=== PATIENT | female | born 1985 | race Caucasian/White ===

== ENCOUNTER → 2017-02-05 | Outpatient (CLI) | payer MEDICAID, OTHER ==
--- NOTE | 2017-02-06 01:35 | REP ---
Clinical: Anatomical evaluation. Comparison: None . Findings: Examination demonstrates a single live intrauterine in cephalic presentation. motion is identified by technologist. Placenta is noted anteriorly and grade zero without evidence for placenta previa or abruption. Amniotic fluid volume is normal. Cervix measures 3.0 cm in length and appears closed. No evidence for nuchal cord. Gestational age by LMP 19 weeks 6 days with CLAUDIA 06/26/2017 . Gestational age by current measurements 19 weeks 0 days with CLAUDIA 07/02/2017 . FHR equals 163 beats per minute. BPD 4.3 cm 19 weeks 1 day HC 16.0 cm 18 weeks 6 days AC 13.6 cm 19 weeks 0 days FL 3.1 cm 19 weeks 5 days HL 2.7 cm 18 weeks 4 days HC/AC ratio 1.18 Estimated weight 283 grams ( 25th percentile). Anatomical assessment demonstrates normal structures including cranium, choroid plexus, cavum, cerebellum/posterior fossa, facial features, lungs, four-chamber heart/ventricular outflow tracts, diaphragm, stomach, cord insertion/three-vessel cord, kidneys/bladder, spine, and extremities. Impression: 1. Single live intrauterine in cephalic presentation demonstrating appropriate interval growth. 2. Anatomical assessment is complete and normal. Signed by Thaddeus Benavides MD 02/06/2017 01:26 A
== END ==
LOC: M RAD 17:48
PROVIDERS: ATTEND Advanced Practice Midwife
DX: Z36 Encounter for antenatal screening of mother (principal)

== ENCOUNTER → 2017-04-17 | Outpatient (CLI) | payer OTHER ==
[~2017-04-17] MED LIST: MOTR200T44 PO; PERC5TAB12 PO; PRENTAB9 PO
[2017-04-17 20:41] LABS: MEAN CORPUSCULAR HGB CONC 34.2 g/dl (32.0-36.5); MEAN CORPUSCULAR VOLUME 93.6 fl (80.0-96.0); RED CELL DISTRIBUTION WIDTH 13.2 % (11.5-14.5); WHITE BLOOD COUNT 9.9 K/mm3 (4.0-10.0)
== END ==
LOC: M WUC 17:05 → MERGE 17:05
PROVIDERS: ATTEND Obstetrics & Gynecology
DX: Z34.02 Encounter for supervision of normal first pregnancy, second trimester (principal)

== ENCOUNTER → 2017-05-28 | Outpatient (REF) | payer OTHER | LOC: M LAB REF 13:09 | PROVIDERS: ATTEND Advanced Practice Midwife | DX: Z34.03 Encounter for supervision of normal first pregnancy, third trimester (principal) ==

== ENCOUNTER 2017-06-30 11:42 | Inpatient (IN) | payer OTHER ==
[2017-06-30] VITALS (7 sets, daily range): BP systolic 93–122; BP diastolic 53–76
[~2017-06-30] VITALS: Ht 149.9 cm; Wt 71.6 kg
[2017-06-30] MEDS ORDERED: PRENTAB9 PO (12:05)
--- NOTE | 2017-06-30 14:33 | REP ---
Limited obstetric sonography: History: Decreased movement. 39 weeks 5 days by comparison with prior sonography. Findings: Scanning demonstrates a viable single intrauterine gestation in a cephalic lie. heart rate is recorder 137 beats per minute. An anterior grade 1 placenta is seen without evidence of previa or abruption. Amniotic fluid index is normal at 16.9 cm. Biophysical profile score is eight out of a possible eight. The SD ratio in the umbilical cord artery by Doppler is normal at 1.87. Signed by Jose Clemente MD 06/30/2017 02:16 P
[2017-06-30] MEDS ORDERED: LR 1,000 ML IV SCH (22:04)
[2017-06-30] MEDS ORDERED: LACTATED RINGER'S 1000 ML IV STA (22:04)
[2017-06-30] MEDS ORDERED: PROMETHAZINE INJ 25 MG/ML VIAL (J2550) IV ONE (22:15)
[2017-06-30] MEDS ORDERED: OXYTOCIN DRIP 30 UNITS in APPROPRIATE DILUENT 1 EA IV SCH (22:15)
[2017-06-30] MEDS ORDERED: BUTORPHANOL 2 MG/ML INJ (J0595) IV ONE (22:15)
[2017-06-30 22:17] LABS: MEAN CORPUSCULAR HEMOGLOBIN 31.6 pg (27.0-33.0); MEAN CORPUSCULAR HGB CONC 35.6 g/dl (32.0-36.5); MEAN CORPUSCULAR VOLUME 88.7 fl (80.0-96.0); PLATELET COUNT, AUTOMATED 205 10^3/uL (150-450); RED CELL DISTRIBUTION WIDTH 12.5 % (11.5-14.5); WHITE BLOOD COUNT 13.6 10^3/uL (4.0-10.0)
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
[2017-07-01] VITALS (41 sets, daily range): BP systolic 92–145; BP diastolic 55–90
[2017-07-01] MEDS ORDERED: FENTANYL 2MCG/ML ROPIVACAINE 0.2% IN 0.9% NACL 200ML IVBAG As Ordered ONE (00:01)
[2017-07-01] MEDS ORDERED: ePHEDrine SULFATE 25 MG/5 ML(5MG/ML) SYRINGE IV PRN (01:30)
[2017-07-01] MEDS ORDERED: LACTATED RINGER'S 1000 ML IV PRN (01:30)
[2017-07-01] MEDS ORDERED: REFRIGERATOR IV KEYS XX PRN (01:30)
[2017-07-01] MEDS ORDERED: diphenhydrAMINE INJ 50MG/ML VIAL (J1200) IV PRN (01:30)
[2017-07-01] MEDS ORDERED: EPIDURAL/PCA KEYS XX PRN (01:30)
[2017-07-01] MEDS ORDERED: FENTANYL/ROPIVACAINE/NACL BAG 200 ML EPIDURAL SCH (01:30)
[2017-07-01] MEDS ORDERED: NALOXONE INJ 0.4 MG/1 ML VIAL (J2310) IV PRN (01:30)
[2017-07-01] MEDS ORDERED: ONDANSETRON 4MG/2ML VIAL (J2405) IV PRN ×2 (01:30→12:15)
[2017-07-01] MEDS ORDERED: EPIDURAL COMMENT XX SCH (01:30)
--- NOTE | 2017-07-01 07:48 | IPNPDOC ---
Text Note Date of Service The patient was seen on 07/01/17. NOTE SUBJECTIVE: Patient comfortable with epidural. No complaints. Reports she was able to rest this morning. OBJECTIVE: VS stable. FHR 145, moderate variability with periods of minimal variability, no decelerations, positive accelerations. Contractions every 2 to 4 minutes. Pitocin at 8 mu. Green bulb removed at 0600. SVE: 1-2/100/-1, intact , scant show. ASSESSMENT: IUP at 40.5 weeks gestation, induction of labor, Category I FHR tracing PLAN: Continue with Pitocin induction. Anticipate cervical change and . VS,Fishbone, I+O VS, Fishbone, I+O Laboratory Tests 06/30/17 22:00 Red Blood Count 3.99 L, Mean Corpuscular Volume 88.7, Mean Corpuscular Hemoglobin 31.6, Mean Corpuscular Hemoglobin Concent 35.6, Red Cell Distribution Width 12.5 Vital Signs Date Time Temp Pulse Resp B/P (MAP) Pulse Ox O2 Delivery O2 Flow Rate FiO2 07/01/17 05:23 97.8 67 17 126/81 (96) KATIUSKA ARTIS CNM Jul 01, 2017 07:48
[2017-07-01] MEDS: DOCUSATE SODIUM 100 MG CAP PO SCH ×2 (09:00→21:33)
[2017-07-01] MEDS: PRENATAL VITAMINS CHEWABLE TABLET PO SCH (09:00)
[2017-07-01] MEDS ORDERED: BICITRA 30ML SOLN UDC As Ordered ONE (10:21)
[2017-07-01] MEDS ORDERED: ceFAZolin 2 GM/D5W 50 ML IV BAG (J0690) As Ordered ONE (10:21)
[2017-07-01] MEDS ORDERED: LACTATED RINGER'S 1000 ML IV STA (10:24)
[2017-07-01] MEDS ORDERED: LIDOCAINE PRES-FREE 2% 10ML AMP As Ordered ONE (10:39)
[2017-07-01] MEDS ORDERED: OXYTOCIN INJ 10 UNITS/ML VIAL (J2590) As Ordered ONE (10:39)
[2017-07-01] MEDS ORDERED: BICITRA 30ML SOLN UDC PO ONE (10:45)
[2017-07-01] MEDS ORDERED: fentaNYL 100 MCG/2 ML INJECTION (J3010) As Ordered ONE (11:12)
[2017-07-01] MEDS ORDERED: MORPHINE PRES-FREE INJ 10 MG/10 ML VIAL (J2274) As Ordered ONE (11:18)
[2017-07-01] MEDS ORDERED: ONDANSETRON 4MG/2ML VIAL (J2405) As Ordered ONE (11:22)
[2017-07-01] MEDS ORDERED: MIDAZOLAM INJ 2 MG/2 ML VIAL (J2250) As Ordered ONE (11:22)
[2017-07-01 11:36] LABS: CORD GAS ABE A -3.2; CORD GAS HCO3 A 23.9 MEQ/L; CORD GAS O2 SAT A 44.4 %; CORD GAS PCO2 A 50.4 mmHg; CORD GAS PH A 7.294 UNITS; CORD GAS PO2 A 20.5 mmHg; CORD GAS SBC A 20.5 MEQ/L; CORD GAS TCO2 A 25.5 MEQ/L
[2017-07-01 11:48] LABS: CORD GAS ABE V -1.8; CORD GAS HCO3 V 24.6 MEQ/L; CORD GAS PCO2 V 47.8 mmHg; CORD GAS PH V 7.329 UNITS; CORD GAS PO2 V 48.2 mmHg; CORD GAS SBC V 22.8 MEQ/L
[2017-07-01] MEDS ORDERED: NORCO, ANEXSIA 5/325MG TABLET (HYDROcodone/ACETAMINOPHEN) PO PRN (12:00)
[2017-07-01] MEDS: LR 1,000 ML IV SCH (12:00)
[2017-07-01] MEDS ORDERED: METHYLERGONOVINE MALEATE 0.2 MG TAB PO PRN (12:00)
[2017-07-01] MEDS ORDERED: MEASLES,MUMPS,RUBELLA VACCINE INJ (MMR-II) (90707) SC SCH (12:00)
[2017-07-01] MEDS ORDERED: MOM 30ML SUSPENSION UDC PO PRN (12:00)
[2017-07-01] MEDS ORDERED: RHOGAM 300 MCG (1500 IU) INJ (J2790) IM SCH (12:00)
[2017-07-01] MEDS ORDERED: PERCOCET 5MG/325MG TAB PO PRN (12:15)
[2017-07-01] MEDS ORDERED: fentaNYL 100 MCG/2 ML INJECTION (J3010) IV PRN (12:15)
[2017-07-01] MEDS ORDERED: LR 1,000 ML IV SCH (12:15)
[2017-07-01] MEDS ORDERED: MEPERIDINE INJ 25 MG/ML VIAL (J2175) IV PRN (12:15)
[2017-07-01] MEDS ORDERED: METOCLOPRAMIDE INJ 10MG/2ML VIAL (J2765) IV PRN (12:15)
[2017-07-01] MEDS: IBUPROFEN 800 MG TAB PO SCH ×2 (14:04→21:33)
[2017-07-01] MEDS: NORCO, ANEXSIA 5/325MG TABLET (HYDROcodone/ACETAMINOPHEN) PO PRN (17:48)
[2017-07-02] MEDS: LR 1,000 ML IV SCH ×3 (00:53→12:58)
[2017-07-02 05:42] VITALS: BP 113/56
[2017-07-02] MEDS: IBUPROFEN 800 MG TAB PO SCH ×3 (06:40→21:10)
[2017-07-02 07:06] LABS: MEAN CORPUSCULAR HEMOGLOBIN 31.7 pg (27.0-33.0); MEAN CORPUSCULAR HGB CONC 34.5 g/dl (32.0-36.5); MEAN CORPUSCULAR VOLUME 91.9 fl (80.0-96.0); PLATELET COUNT, AUTOMATED 161 10^3/uL (150-450); RED CELL DISTRIBUTION WIDTH 13.1 % (11.5-14.5)
[2017-07-02] MEDS ORDERED: INFLUENZA QUADRIVALENT PF VACCINE 0.5ML SYRINGE (90686) IM ONE (09:00)
[2017-07-02] MEDS: DOCUSATE SODIUM 100 MG CAP PO SCH ×2 (09:23→21:10)
[2017-07-02] MEDS: PRENATAL VITAMINS CHEWABLE TABLET PO SCH (09:23)
[2017-07-02 10:04] VITALS: BP 112/60
[2017-07-02 14:10] VITALS: BP 119/79
--- NOTE | 2017-07-02 16:35 | RO ---
DATE OF PROCEDURE: 07/01/2017 Audrey is a 32-year-old female, 1, para 0, who was admitted at 40-2/7 weeks gestation. She underwent a Green bulb, followed by Pitocin induction, had meconium-stained fluid with non-reassuring heart rate tracing at 4 cm dilated. At this point, given that she was remote from delivery and the meconium stain with the non-reassuring heart rate tracing, a decision was made to proceed with delivery via primary low transverse section. PREOPERATIVE DIAGNOSES: 1. Intrauterine at 40-2/7 weeks gestation. 2. Non-reassuring heart rate tracing remote from delivery. 3. Meconium-stained fluid. POSTOPERATIVE DIAGNOSES: 1. Intrauterine at 40-2/7 weeks gestation. 2. Non-reassuring heart rate tracing remote from delivery. 3. Meconium-stained fluid. PROCEDURE: Primary low transverse section via Pfannenstiel incision. SURGEON: Rashel Mnedoza DO JEWEL[employer] STORE MANAGER: ANESTHESIA: Epidural. COMPLICATION: None. ESTIMATED BLOOD LOSS: 500 mL. FINDING: Live female in left occiput transverse position. 9/9. weight 6 pounds 4 ounces. Normal-appearing tube and ovaries. DESCRIPTION OF PROCEDURE: After obtaining informed consent, patient was taken to the operating room where epidural anesthetic was found to be adequate. She was then draped and prepped in usual sterile fashion in supine position. At this point, a Pfannenstiel incision was made with the first knife. This was carried down to the fascia. Fascia was incised in midline fashion and carried through laterally. Superior aspect of the fascia were then grasped with two Olivia clamps, tented off and dissected off the rectus muscles sharply. The inferior aspect was dissected off in a similar fashion. Rectus muscles in midline fashion. Perineum identified. Peritoneal cavity entered bluntly. Superior and inferior dissection of the peritoneum was then done with good visualization of the bladder. At this point, a Mobius skin retractor was placed. A low-transverse uterine incision was made. Infant was delivered in atraumatic fashion. Nose and mouth bulb suctioned. Cord doubly clamped and cut, and infant was handed over to the waiting warmer. Cord blood and cord gas was sent. Placenta removed manually. Uterus cleared of all clot and debris and the uterine incision was then repaired in two separate layers of #0 Vicryl sutures. Pelvis copiously irrigated with normal saline and suctioned out. Attention turned to the peritoneum, which was closed in a running fashion using #2-0 Vicryl. All superficial bleeders coagulated. Fascia closed in two separate segment of #0 Vicryl sutures. The skin was reapproximated in a subcuticular fashion using #3-0 Vicryl on a Carlos Alberto. Steri-Strips placed. Patient tolerated procedure well. She was then transferred to recovery room in stable condition.
[2017-07-02 18:05] VITALS: BP 104/72
[2017-07-02] MEDS: NORCO, ANEXSIA 5/325MG TABLET (HYDROcodone/ACETAMINOPHEN) PO PRN (21:56)
[2017-07-02 22:00] VITALS: BP 119/66
[2017-07-03 02:00] VITALS: BP 93/58
[2017-07-03] MEDS: IBUPROFEN 800 MG TAB PO SCH ×2 (05:44→13:24)
[2017-07-03 06:00] VITALS: BP 110/69
[2017-07-03] MEDS: PRENATAL VITAMINS CHEWABLE TABLET PO SCH (08:12)
[2017-07-03] MEDS: DOCUSATE SODIUM 100 MG CAP PO SCH (08:12)
[2017-07-03] MEDS: NORCO, ANEXSIA 5/325MG TABLET (HYDROcodone/ACETAMINOPHEN) PO PRN ×2 (08:13→13:25)
[2017-07-03] MEDS ORDERED: PERC5TAB12 PO (09:56)
[2017-07-03] MEDS ORDERED: MOTR200T44 PO (10:37)
--- NOTE | 2017-07-04 09:22 | DSES ---
DATE OF ADMISSION: 06/30/2017 DATE OF DISCHARGE: 07/03/2017 FINAL DIAGNOSES: 1. Term with meconium-stained fluid. 2. Nonreassuring heart rate tracing. PROCEDURE PERFORMED: Procedure done during this admission; primary low transverse section via Pfannenstiel incision. CONDITION ON DISCHARGE: Stable. DISCHARGE INSTRUCTIONS: The patient is instructed to call if there is any severe bleeding, pain or temperature greater than 101. She is given a prescription for Percocet as needed for pain. She is further instructed to use Motrin every 6 to 8 hours. BRIEF HISTORY: Audrey is a 32-year-old female 1, para 0 who presented of 40-2/7 weeks gestation. She had meconium-stained fluid after artificial rupture of membranes. She was also found to have a nonreassuring heart rate tracing, remote from delivery. At this point, a decision was made to proceed with delivery via section. She underwent a primary low transverse section and did extremely well, was then transferred to maternity for postoperative care. Postoperatively, she did well, remained afebrile. On postop day #1, her hemoglobin and hematocrit were stable. On postoperative day #2, physical exam was within normal limits. At this point, we made the decision to discharge the patient. She was given a prescription for Percocet as needed for pain. Discharge instructions given.
== END 2017-07-03 13:54 | disposition home or self-care (01) | DRG 766 ==
LOC: M LDO 11:42 → M LDI 22:40 → M OBS 07-01 13:35
PROVIDERS: ADMIT Advanced Practice Midwife; ATTEND Advanced Practice Midwife
PROC: 3E033VJ Introduction of Other Hormone into Peripheral Vein, Percutaneous Approach (ICD-10-PCS; 2017-06-30)
PROC: 10D00Z1 Extraction of Products of Conception, Low, Open Approach (ICD-10-PCS; principal; 2017-07-01)
DX: O48.0 Post-term pregnancy (principal); Z37.0 Single live birth; Z3A.40 40 weeks gestation of pregnancy; O76 Abnormality in fetal heart rate and rhythm complicating labor and delivery; O77.0 Labor and delivery complicated by meconium in amniotic fluid

== ENCOUNTER → 2017-12-30 | Outpatient (REF) | payer OTHER ==
[2017-12-30 19:20] LABS: HEMATOCRIT 42.9 % (36.0-47.0); HEMOGLOBIN 14.3 g/dl (12.0-15.5); MEAN CORPUSCULAR HGB CONC 33.3 g/dl (32.0-36.5); MEAN CORPUSCULAR VOLUME 90.1 fl (80.0-96.0); PLATELET COUNT, AUTOMATED 312 10^3/uL (150-450); RED BLOOD COUNT 4.76 10^6/uL (4.00-5.40); RED CELL DISTRIBUTION WIDTH 13.2 % (11.5-14.5); WHITE BLOOD COUNT 7.7 10^3/uL (4.0-10.0)
[2017-12-30 20:03] LABS: ALBUMIN 3.5 GM/DL (3.2-5.2); ALKALINE PHOSPHATASE 49 U/L (45-117); ALT/SGPT 18 U/L (12-78); ANION GAP 11 MEQ/L (8-16); AST/SGOT 24 U/L (7-37); BILIRUBIN,TOTAL 0.3 MG/DL (0.2-1.0); BLOOD UREA NITROGEN 10 MG/DL (7-18); CALCIUM LEVEL 8.8 MG/DL (8.5-10.1); CARBON DIOXIDE LEVEL 27 MEQ/L (21-32); CHLORIDE LEVEL 103 MEQ/L (98-107); CHOLESTEROL LEVEL 180 MG/DL (<200); CHOLESTEROL RISK RATIO 2.903 (<5); CREATININE FOR GFR 0.62 MG/DL (0.55-1.30); FREE T4 0.94 NG/DL (0.76-1.46); GLOMERULAR FILTRATION RATE > 60.0 (>60); GLUCOSE, FASTING 62 MG/DL (70-100); HDL CHOLESTEROL 62 MG/DL (>40); LDL CHOLESTEROL 94.4 MG/DL (<100); NON-HDL-C 118 MG/DL; POTASSIUM SERUM 4.3 MEQ/L (3.5-5.1); SODIUM LEVEL 141 MEQ/L (136-145); THYROID STIMULATING HORMONE 0.951 uIU/ML (0.358-3.740); TOTAL PROTEIN 7.9 GM/DL (6.4-8.2); TRIGLYCERIDES LEVEL 118 MG/DL (<150)
== END ==
LOC: M LAB REF 19:04
DX: Z12.4 Encounter for screening for malignant neoplasm of cervix (principal)
CPT/HCPCS: 84443

== ENCOUNTER → 2019-12-10 | Outpatient (CLI) | payer OTHER ==
[2019-12-10 16:15] LABS: HEMATOCRIT 32.4 % (36.0-47.0); HEMOGLOBIN 10.9 g/dl (12.0-15.5); MEAN CORPUSCULAR HEMOGLOBIN 31.6 pg (27.0-33.0); MEAN CORPUSCULAR HGB CONC 33.6 g/dl (32.0-36.5); MEAN CORPUSCULAR VOLUME 93.9 fl (80.0-96.0); PLATELET COUNT, AUTOMATED 214 10^3/uL (150-450); RED BLOOD COUNT 3.45 10^6/uL (4.00-5.40); WHITE BLOOD COUNT 12.9 10^3/uL (4.0-10.0)
== END ==
LOC: M WUC 10:39
PROVIDERS: ATTEND Obstetrics & Gynecology
DX: Z34.82 Encounter for supervision of other normal pregnancy, second trimester (principal)

== ENCOUNTER → 2020-01-07 | Outpatient (REF) | payer OTHER ==
[2020-01-08 11:05] LABS: HEPATITIS C VIRUS ABY INDEX 0.1 INDEX (<0.8); HIV 1&2 SCREEN CENTAUR NEGATIVE (NEGATIVE)
== END ==
LOC: M LAB REF 12:11
PROVIDERS: ATTEND Obstetrics & Gynecology
DX: Z34.03 Encounter for supervision of normal first pregnancy, third trimester (principal)

== ENCOUNTER → 2020-01-27 | Outpatient (REF) | payer OTHER | LOC: M LAB REF 16:00 | PROVIDERS: ATTEND Obstetrics & Gynecology | DX: Z34.83 Encounter for supervision of other normal pregnancy, third trimester (principal) ==

== ENCOUNTER → 2020-02-22 | Outpatient (CLI) | payer OTHER ==
[~2020-02-22] MED LIST changes: +IBUP80TA PO; +PERCOCET PO; +TUMS500C PO
== END ==
LOC: M LABSMTC 10:17
PROVIDERS: ATTEND Anesthesiology
DX: Z03.818 Encounter for observation for suspected exposure to other biological agents ruled out (principal); Z11.59 Encounter for screening for other viral diseases
CPT/HCPCS: C9803; U0003

== ENCOUNTER 2020-02-24 07:29 | Inpatient (IN) | payer OTHER ==
[~2020-02-24] VITALS: Ht 149.9 cm; Wt 73.6 kg
[2020-02-24] VITALS (9 sets, daily range): BP systolic 88–102; BP diastolic 50–63
[~2020-02-24 07:29] MED LIST changes: -IBUP80TA PO; -PERCOCET PO; -TUMS500C PO
[2020-02-24] MEDS ORDERED: TUMS500C PO (07:54)
[2020-02-24] MEDS ORDERED: NALBUPHINE HCL 10 MG/ML AMP (J2300) IV PRN (07:56)
[2020-02-24] MEDS ORDERED: ONDANSETRON 4MG/2ML VIAL IV PRN ×2 (07:56→11:30)
[2020-02-24] MEDS ORDERED: NALOXONE INJ 0.4MG/1ML VIAL (J2310 PER 1MG) IV PRN ×2 (07:56)
[2020-02-24] MEDS ORDERED: METOCLOPRAMIDE INJ 10MG/2ML VIAL (J2765 PER 1) IV PRN ×2 (07:56→11:30)
[2020-02-24] MEDS ORDERED: diphenhydrAMINE 50MG/ML VIAL (J1200) IV PRN (07:56)
[2020-02-24] MEDS ORDERED: LACTATED RINGER'S 1000 ML IV STA (08:00)
[2020-02-24] MEDS ORDERED: ceFAZolin SOD 2 GM in IV 1 EA IV ONE ×2 (08:00→08:15)
[2020-02-24] MEDS ORDERED: BICITRA 30ML SOLN UDC PO ONE ×2 (08:00→08:15)
[2020-02-24] MEDS ORDERED: LR 1,000 ML IV SCH ×3 (08:00→11:30)
[2020-02-24] MEDS ORDERED: LR 1,000 ML IV ONE (08:15)
[2020-02-24 08:26] LABS: HEMATOCRIT 34.5 % (36.0-47.0); HEMOGLOBIN 11.1 g/dl (12.0-15.5); MEAN CORPUSCULAR HEMOGLOBIN 27.9 pg (27.0-33.0); MEAN CORPUSCULAR HGB CONC 32.2 g/dl (32.0-36.5); MEAN CORPUSCULAR VOLUME 86.7 fl (80.0-96.0); PLATELET COUNT, AUTOMATED 221 10^3/uL (150-450); RED BLOOD COUNT 3.98 10^6/uL (4.00-5.40); WHITE BLOOD COUNT 11.5 10^3/uL (4.0-10.0)
[2020-02-24] MEDS ORDERED: OXYTOCIN 30 UNITS IN 0.9% NaCl 500ML IV BAG (J2590) As Ordered ONE ×2 (09:10→10:36)
[2020-02-24] MEDS ORDERED: MORPHINE PRES-FREE INJ 10 MG/10 ML VIAL (J2274) As Ordered ONE (09:10)
[2020-02-24] MEDS ORDERED: OXYTOCIN DRIP 30 UNITS in IV 1 EA IV SCH (09:53)
[2020-02-24] MEDS ORDERED: MEASLES,MUMPS,RUBELLA VACCINE INJ (MMR-II) (90707) SC SCH (10:00)
[2020-02-24] MEDS ORDERED: PERCOCET 5MG/325MG TAB PO PRN ×2 (10:00→11:30)
[2020-02-24] MEDS ORDERED: RHOGAM 300 MCG (1500 IU) INJ (J2790) IM SCH (10:00)
[2020-02-24] MEDS ORDERED: KETAMINE HCL 200 MG/20 ML VIAL As Ordered ONE (10:06)
[2020-02-24] MEDS ORDERED: ONDANSETRON 4MG/2ML VIAL As Ordered ONE (10:30)
[2020-02-24] MEDS ORDERED: dexameTHASONE 4 MG/ML 1ML VIAL (J1100 PER 1MG) As Ordered ONE (10:30)
[2020-02-24] MEDS ORDERED: propofoL 200 MG/20 ML VIAL As Ordered ONE (10:30)
[2020-02-24 10:33] LABS: CORD GAS ABE A -2.2; CORD GAS ABE V -3.2; CORD GAS HCO3 A 24.6 MEQ/L; CORD GAS HCO3 V 21.5 MEQ/L; CORD GAS O2 SAT V 83.9 %; CORD GAS PCO2 A 50.3 mmHg; CORD GAS PCO2 V 37.5 mmHg; CORD GAS PH A 7.307 UNITS; CORD GAS PH V 7.376 UNITS; CORD GAS PO2 A 21.6 mmHg; CORD GAS PO2 V 38.1 mmHg; CORD GAS SBC A 21.5 MEQ/L; CORD GAS SBC V 21.5 MEQ/L; CORD GAS TCO2 A 26.1 MEQ/L; CORD GAS TCO2 V 22.6 MEQ/L
[2020-02-24] MEDS ORDERED: fentaNYL 100 MCG/2 ML INJECTION (J3010) IV PRN (11:30)
[2020-02-24] MEDS ORDERED: KETOROLAC 30 MG/ML 1ML VIAL IV PRN (11:30)
[2020-02-24] MEDS ORDERED: KETOROLAC 30 MG/ML 1ML VIAL As Ordered ONE (12:02)
[2020-02-24] MEDS ORDERED: LIDOCAINE W/EPINEPHRINE 1% 20ML VIAL SC ONE (13:00)
[2020-02-24] MEDS ORDERED: LIDOCAINE W/EPINEPHRINE 1% 20ML VIAL As Ordered ONE ×2 (15:22→15:23)
[2020-02-24] MEDS: PRENATAL VITAMINS CHEWABLE TABLET PO SCH (17:40)
[2020-02-24] MEDS: KETOROLAC 30 MG/ML 1ML VIAL IV SCH ×2 (18:39→23:35)
[2020-02-25 02:00] VITALS: BP 91/47
[2020-02-25] MEDS ORDERED: SLF 3 ML SYR IV PRN (02:15)
[2020-02-25] MEDS: SLF 3 ML SYR IV SCH ×2 (05:46→14:00)
[2020-02-25] MEDS: KETOROLAC 30 MG/ML 1ML VIAL IV SCH (05:46)
[2020-02-25 06:00] VITALS: BP 93/50
[2020-02-25] MEDS: PRENATAL VITAMINS CHEWABLE TABLET PO SCH (08:28)
[2020-02-25 08:47] LABS: HEMATOCRIT 29.2 % (36.0-47.0); HEMOGLOBIN 9.4 g/dl (12.0-15.5); MEAN CORPUSCULAR HEMOGLOBIN 28.2 pg (27.0-33.0); MEAN CORPUSCULAR HGB CONC 32.2 g/dl (32.0-36.5); MEAN CORPUSCULAR VOLUME 87.7 fl (80.0-96.0); PLATELET COUNT, AUTOMATED 203 10^3/uL (150-450); RED BLOOD COUNT 3.33 10^6/uL (4.00-5.40); WHITE BLOOD COUNT 16.2 10^3/uL (4.0-10.0)
[2020-02-25 10:00] VITALS: BP 95/55
[2020-02-25 14:00] VITALS: BP 98/57
[2020-02-25] MEDS: IBUPROFEN 800 MG TAB PO SCH ×2 (14:45→22:12)
[2020-02-25 18:00] VITALS: BP 123/63
[2020-02-25 22:00] VITALS: BP 103/54
[2020-02-26 02:00] VITALS: BP 109/56
[2020-02-26 06:00] VITALS: BP 91/52
[2020-02-26] MEDS: IBUPROFEN 800 MG TAB PO SCH (06:05)
[2020-02-26] MEDS ORDERED: IBUP80TA PO (09:46)
[2020-02-26] MEDS ORDERED: PERCOCET PO (09:46)
--- NOTE | 2020-02-26 09:55 | OBDS ---
[facility] Obstetrical Discharge Sum. Obstetrical Discharge Summary Washtub Worker Helper/Provider: Rashel Mendoza DO Date: Feb 26, 2020 Time: 09:48 : 1 Term: 1 Pre-term: 0 Abortions: 0 Livin VDRL: Non-Reactive Rubella: Non-Immune Sex: Female Anesthesia: Regional Anesthesia A/P, Post Course List any complications Admission diagnosis: Ter for elective repeat c/s; Desires permanent tubal sterilization. Discharge diagnosis: SAME Condition at Discharge: [Stable ] Discharge Instructions: [Nothing in the vagina for 6 weeks.] Activity: [As tolerated] Diet: [Regular] Medications: [See list] Follow-up: [2 weeks] Other: Rashel Mendoza DO Feb 26, 2020 09:55
[2020-02-26] MEDS: PRENATAL VITAMINS CHEWABLE TABLET PO SCH (10:12)
--- NOTE | 2020-03-01 12:05 | RO ---
DATE OF PROCEDURE: 02/24/2020 Audrey is a 34-year-old female, 2, para 1-0-0-1, with a history of prior section who is being admitted for elective repeat section. The patient also desires permanent tubal sterilization. PREOPERATIVE DIAGNOSES: 1. Term for elective repeat section. 2. Desires permanent tubal sterilization. POSTOPERATIVE DIAGNOSES: 1. Term for elective repeat section. 2. Desires permanent tubal sterilization. PROCEDURE: 1. Repeat section. 2. Removal of both tube. ANESTHESIA: Spinal. SURGEON. Dr. Mendoza PARKING LOT SPOTTER: Viri Cazares CNM COMPLICATIONS: None. ESTIMATED BLOOD LOSS: 500 mL. FINDINGS: Live infant in occiput transverse position. 9/9. weight 7 pounds 2 ounces. Placenta delivered manually intact. Three-vessel cord. Normal-appearing tube and ovaries. DESCRIPTION OF PROCEDURE: After obtaining informed consent, the patient was taken to the operating room where spinal anesthetic was found to be adequate. She was then draped and prepped in the usual sterile fashion in the supine position. At this point, local anesthetic was given 1% lidocaine with epi and an elliptical incision was made. The old scar was removed. The incision was carried down to the fascia with the help of Celina Cazares. The incision was extended. Perineum identified. Peritoneal cavity entered bluntly. Superior and inferior dissection of peritoneum was then done with good visualization of the bladder. At this point, a Mobius skin retractor was placed. A low-transverse uterine incision was made. was delivered in atraumatic fashion. Nose and mouth bulb suctioned. Cord doubly clamped and cut, and infant was handed over to the waiting warmer. Cord blood and cord gas was sent. Placenta removed manually. Uterus cleared of all clot and debris, and uterine incision was then repaired in two separate layers of #0 Vicryl suture. We then turned our attention to the fallopian tube where the fimbriated end was identified. Two Olivia's were used at the fallopian tube and using a Bovie the entire fallopian tube was removed. The mesosalpinx was then closed using #3-0 chromic on a SH needle. The opposite side was done in similar fashion. Pelvis copiously irrigated with normal saline and suctioned out. Attention turned to the peritoneum, which was closed in running fashion using #2-0 Vicryl. Fascia closed in two separate segment of #0 Vicryl sutures and the skin was reapproximated in subcuticular fashion using #3-0 Vicryl on a Carlos Alberto. Steri-Strips placed. The patient tolerated procedure well. She was then transferred to recovery room in stable condition.
== END 2020-02-26 11:05 | disposition home or self-care (01) | DRG 785 ==
LOC: M LDI 07:29 → M OBS 12:43
PROVIDERS: ADMIT Obstetrics & Gynecology; ATTEND Obstetrics & Gynecology
PROC: 0UT70ZZ Resection of Bilateral Fallopian Tubes, Open Approach (ICD-10-PCS; 2020-02-24)
PROC: 10D00Z1 Extraction of Products of Conception, Low, Open Approach (ICD-10-PCS; principal; 2020-02-24 09:30)
DX: O34.211 Maternal care for low transverse scar from previous cesarean delivery (principal); Z3A.39 39 weeks gestation of pregnancy; Z30.2 Encounter for sterilization; Z37.0 Single live birth

== ENCOUNTER → 2020-08-24 | Outpatient (CLI) | payer OTHER ==
[~2020-08-24] MED LIST changes: +IBUP80TA PO; +PERCOCET PO; +TUMS500C PO
--- NOTE | 2020-08-24 13:09 | REP ---
INDICATION: RIGHT BREAST PAIN, LACTATING, RULED OUT MASTITIS. RIGHT BREAST PAIN, LACTATING, RULED OUT MASTITIS. Pain right breast 7-11 o'clock. COMPARISON: None TECHNIQUE: Real-time sonographic evaluation of right breast performed. FINDINGS: No cystic or solid nodule seen in the right breast between 7 and 11 o'clock, in the region of pain. IMPRESSION: BIRADS/ACR category 1, negative ultrasound right breast in the region of pain. RECOMMENDATION: Clinical correlation and follow-up. <Electronically signed by Antonio Welsh > 08/24/20 [id number]
== END ==
LOC: M WHC 09:37
PROVIDERS: ATTEND Advanced Practice Midwife
DX: N64.4 Mastodynia (principal)

== ENCOUNTER → 2020-12-23 | Outpatient (CLI) | payer OTHER ==
--- NOTE | 2020-12-23 08:54 | REP ---
INDICATION: EPIGASTRIC PAIN COMPARISON: None. TECHNIQUE: Real time serrano scale ultrasound examination using curved array transducer. FINDINGS: Liver is normal in contour, size, and echogenicity without focal hepatic lesions identified. Pancreas is incompletely evaluated due to interposed bowel gas. The gallbladder is surgically absent. No significant biliary ductal dilatation is appreciated and the common bile duct measures 7 mm diameter. Right kidney is normal in reniform shape without hydronephrosis and measures 12.2 x 4.6 x 4.4 cm. No ascites in the visualized right upper quadrant. IMPRESSION: Normal limited right upper quadrant ultrasound. Evidence for prior cholecystectomy. <Electronically signed by Thaddeus Benavides > 12/23/20 [id number]
== END ==
LOC: M RAD 07:56
PROVIDERS: ATTEND Physician Assistant Medical
DX: R10.13 Epigastric pain (principal)

== ENCOUNTER → 2021-03-10 | Outpatient (REF) | payer OTHER | LOC: M LAB REF 15:43 | PROVIDERS: ATTEND Internal Medicine Gastroenterology | DX: R10.13 Epigastric pain (principal) ==

== ENCOUNTER → 2021-03-21 | Outpatient (CLI) | payer OTHER ==
--- NOTE | 2021-03-21 11:43 | REP ---
INDICATION: EPIGASTRIC PAIN. COMPARISON: Comparison study December 23, 2020.. TECHNIQUE: Transabdominal right upper quadrant sonography. FINDINGS: Real-time scanning through the right upper quadrant of the abdomen demonstrates a normal-sized homogeneous liver. No focal liver lesion is seen. The gallbladder surgically absent. No intrahepatic ductal dilation is observed. Common bile duct is normal measuring 0.5 cm in greatest diameter. No pancreatic abnormality is observed. There is no evidence of ascites or right renal abnormality. The right kidney measures 11.5 x 5.2 x 4.3 cm. Scanning is performed in the mid abdomen at the area of scarring. No abnormality is seen in the anterior abdominal wall in this region. IMPRESSION: Negative right upper quadrant sonogram patient post cholecystectomy. <Electronically signed by Dino Clemente > 03/21/21 [id number]
== END ==
LOC: M RAD 09:46
PROVIDERS: ATTEND Internal Medicine Gastroenterology
DX: R10.13 Epigastric pain (principal)

== ENCOUNTER → 2024-02-25 | Outpatient (CLI) | payer OTHER ==
[2024-02-25 15:39] LABS: BASO # 0.1 10^3/uL (0.0-0.2); BASO % 1.1 % (0.0-1.0); EOS # 0.5 10^3/uL (0.0-0.5); EOS % 9.8 % (0.0-3.0); HEMATOCRIT 38.2 % (36.0-47.0); LYMPH # 2.5 10^3/uL (1.5-5.0); LYMPH % 45.3 % (24.0-44.0); MEAN CORPUSCULAR HEMOGLOBIN 31.2 pg (27.0-33.0); MEAN CORPUSCULAR VOLUME 91.6 fl (80.0-96.0); MONO # 0.4 10^3/uL (0.0-0.8); MONO % 7.8 % (2.0-8.0); NEUTROPHILS # 1.9 10^3/uL (1.5-8.5); NEUTROPHILS % 35.8 % (36.0-66.0); PLATELET COUNT, AUTOMATED 271 10^3/uL (150-450); RED BLOOD COUNT 4.17 10^6/uL (4.00-5.40); WHITE BLOOD COUNT 5.4 10^3/uL (4.0-10.0)
[2024-02-25 16:07] LABS: PERCENT SATURATION 28.4 % (13.2-45.0)
[2024-02-25 16:08] LABS: FERRITIN 10.6 NG/ML (7.3-270.7); THYROID STIMULATING HORMONE 1.006 uIU/ML (0.55-4.78)
[2024-02-25 16:09] LABS: FREE T4 1.06 NG/DL (0.89-1.76)
== END ==
LOC: M PLALAB 11:43
PROVIDERS: ATTEND Nurse Practitioner Family
DX: N92.0 Excessive and frequent menstruation with regular cycle (principal); N94.6 Dysmenorrhea, unspecified; Z12.4 Encounter for screening for malignant neoplasm of cervix; Z11.51 Encounter for screening for human papillomavirus (HPV); Z01.419 Encounter for gynecological examination (general) (routine) without abnormal findings; Z77.9 Other contact with and (suspected) exposures hazardous to health